=== PATIENT | female | born 1960 | race Caucasian/White ===

== ENCOUNTER 2018-08-31 17:22 | Outpatient (CLI) | payer SELFPAY | END 2018-08-31 17:23 | disposition critical access hospital (66) | LOC: EMS 17:22 | PROVIDERS: ATTEND Surgery | DX: M79.651 Pain in right thigh (principal); R25.2 Cramp and spasm; R20.0 Anesthesia of skin | CPT/HCPCS: A0425; A0429 ==

== ENCOUNTER 2018-08-31 17:45 | Emergency (ER) | payer SELFPAY ==
--- NOTE | 2018-08-31 18:27 | ED Physician Documentation ---
PD HPI ALTERED MENTAL STATUS - Stated complaint Stated Complaint: R LEG PX - Chief complaint Chief Complaint: Neuro - History obtained from History obtained from: Patient, Family, EMS - History of Present Illness Timing - onset: How many days ago (has had some intermittent muscle cramps right leg over past 3 weeks, more often the past 2 days. Had cramping pain right leg today and family noted that she was interacting poorly, sleepy, and did not remember events that had just happened. She denies sedating meds taken for the pain. Brought here for evaluation.) Timing - details: Intermittant (she says her leg feels normal between episodes. Has had some other mild muscle aches in legs and arms the past few weeks as well.) Quality / character: Less responsive, Confused Associated symptoms: Other (mainly the right thigh pain when she was noted to be confused). No: Fever, Headache, Dyspnea, NVD Basline status: Alert and oriented X 3, Ambulatory Similar symptoms before: Has not had sx before (just the past few weeks) Recently seen: Not recently seen Review of Systems Constitutional: denies: Fever, Chills Nose: denies: Rhinorrhea / runny nose, Congestion Throat: denies: Sore throat Cardiac: denies: Chest pain / pressure, Palpitations Respiratory: reports: Cough. denies: Dyspnea, Wheezing GI: denies: Nausea, Vomiting, Diarrhea Neurologic: denies: Focal weakness, Numbness, Headache PD PAST MEDICAL HISTORY - Past Medical History Past Medical History: No Cardiovascular: None Respiratory: None Neuro: None Endocrine/Autoimmune: None GI: None [employer]: None : None HEENT: None Psych: None Musculoskeletal: None Derm: None - Past Surgical History Past Surgical History: Yes Ortho: Knee replacement - Present Medications Home Medications: Ambulatory Orders Medication Instructions Recorded Confirmed Naproxen 375 mg PO BID #20 tablet 08/31/18 Oxycodone HCl/Acetaminophen 1 - 2 each PO Q6H PRN #14 tablet 08/31/18 [Percocet 5-325 mg Tablet] Potassium Chloride 10 meq PO DAILY #15 tablet.er 08/31/18 - Allergies Allergies/Adverse Reactions: Allergies Allergy/AdvReac Type Severity Reaction Status Date / Time No Known Drug Allergies Allergy Verified 08/31/18 17:59 - Living Situation Living Situation: reports: Other ([place] the next 3- 4 months) - Social History Does the pt smoke?: Yes Smoking Status: Current every day smoker Does the pt drink ETOH?: No Does the pt have substance abuse?: No - Immunizations Immunizations are current?: Yes - POLST Patient has POLST: No PD ED PE NORMAL - Vitals Vital signs reviewed: Yes - General General: Alert and oriented X 3, Well developed/nourished, Other (appears in pain and holding right leg up in air, stretching on right back of the leg. No rash nor sores. She is able to answer questions but is focused on the leg pain. Tender posterolateral thigh. ) - Neck Neck: Supple, no meningeal sign, No adenopathy - Cardiac Cardiac: RRR, No murmur - Respiratory Respiratory: Clear bilaterally - Abdomen Abdomen: Normal bowel sounds, Soft, Non tender, Non distended - Back Back: No CVA TTP, No spinal TTP - Derm Derm: Normal color, Warm and dry, No rash - Neuro Neuro: No motor deficit, No sensory deficit, Normal speech. No: Alert and oriented X 3 (somewhat somnolent, focused on leg pain, answers questions simply, but is oriented. ) Results - Vitals Vitals: Oxygen O2 Source Room air - Labs Labs: Microbiology 08/31/18 18:50 Urine Culture - Final Urine,Random NO AEROBIC GROWTH AT 24 HOURS Laboratory Tests 08/31/18 08/31/18 08/31/18 18:50 18:57 18:57 WBC 10.5 RBC 5.11 Hgb 15.4 Hct 45.8 MCV 89.7 MCH 30.2 MCHC 33.6 RDW 13.6 Plt Count 380 MPV 7.8 L Neut # (Auto) 6.2 Lymph # (Auto) 3.4 Tillman # (Auto) 0.7 Eos # (Auto) 0.1 Baso # (Auto) 0.2 H Absolute Nucleated RBC 0.01 Nucleated RBC % 0.1 D-Dimer Sodium 137 Potassium 3.4 L Chloride 107 Carbon Dioxide 19 L Anion Gap 11.0 BUN 9 Creatinine 0.8 Estimated GFR (MDRD) 74 L Glucose 91 Lactic Acid Calcium 9.4 Magnesium 2.1 Total Bilirubin 0.3 AST 26 ALT 20 Alkaline Phosphatase 112 Total Creatine Kinase 98 Total Protein 8.4 H Albumin 4.1 Globulin 4.3 H Albumin/Globulin Ratio 1.0 Lipase 46 TSH Urine Color YELLOW Urine Clarity CLEAR Urine pH 6.5 Ur Specific [place] <=1.005 Urine Protein NEGATIVE Urine Glucose (UA) NEGATIVE Urine Ketones NEGATIVE Urine Occult Blood NEGATIVE Urine Nitrite NEGATIVE Urine Bilirubin NEGATIVE Urine Urobilinogen 0.2 (NORMAL) Ur Leukocyte Esterase TRACE H Urine RBC 0-5 Urine WBC 4-5 Ur Squamous Epith Cells RARE Squamous Urine Bacteria None Seen Ur Microscopic Review INDICATED Urine Culture Comments INDICATED Urine Opiates Screen NEGATIVE Ur Oxycodone Screen NEGATIVE Urine Methadone Screen NEGATIVE Ur Propoxyphene Screen NEGATIVE Ur Barbiturates Screen NEGATIVE Ur Tricyclics Screen NEGATIVE Ur Phencyclidine Scrn NEGATIVE Ur Amphetamine Screen NEGATIVE U Methamphetamines Scrn NEGATIVE U Benzodiazepines Scrn NEGATIVE Urine Cocaine Screen NEGATIVE U Cannabinoids Screen NEGATIVE Ethyl Alcohol < 5.0 08/31/18 08/31/18 08/31/18 18:57 18:57 18:57 WBC RBC Hgb Hct MCV MCH MCHC RDW Plt Count MPV Neut # (Auto) Lymph # (Auto) Tillman # (Auto) Eos # (Auto) Baso # (Auto) Absolute Nucleated RBC Nucleated RBC % D-Dimer < 200.0 L Sodium Potassium Chloride Carbon Dioxide Anion Gap BUN Creatinine Estimated GFR (MDRD) Glucose Lactic Acid 2.3 H Calcium Magnesium Total Bilirubin AST ALT Alkaline Phosphatase Total Creatine Kinase Total Protein Albumin Globulin Albumin/Globulin Ratio Lipase TSH 3.85 Urine Color Urine Clarity Urine pH Ur Specific [place] Urine Protein Urine Glucose (UA) Urine Ketones Urine Occult Blood Urine Nitrite Urine Bilirubin Urine Urobilinogen Ur Leukocyte Esterase Urine RBC Urine WBC Ur Squamous Epith Cells Urine Bacteria Ur Microscopic Review Urine Culture Comments Urine Opiates Screen Ur Oxycodone Screen Urine Methadone Screen Ur Propoxyphene Screen Ur Barbiturates Screen Ur Tricyclics Screen Ur Phencyclidine Scrn Ur Amphetamine Screen U Methamphetamines Scrn U Benzodiazepines Scrn Urine Cocaine Screen U Cannabinoids Screen Ethyl Alcohol - Rads (name of study) chest xray Radiology: Prelim report reviewed, EMP read contemporaneously (normal) PD MEDICAL DECISION MAKING - ED course Complexity details: reviewed results (no lab results to support significant infection, muscle breakdown, DVT. Utox is negative. She denies taking sedating meds for the leg pain. ), considered differential (strangely was having poor interaction and not memory of getting here to ER while having the leg pain. Her numbness of arms/legs/face I think was hyperventilation and would c/w her breathing pattern initially in ER. She is feeling well and normally awake and interactive once had some pain meds for leg. No headache, fever, nor other red flags per se. ), d/w patient Departure - Departure Disposition: 01 Home, Self Care Clinical Impression: Acute pain of right thigh, Hypokalemia Altered mental status Qualifiers: Altered mental status type: delirium Qualified Code(s): R41.0 - Disorientation, unspecified Condition: Stable Record reviewed to determine appropriate education?: Yes Instructions: ED Muscle Pain Leg Cramps Follow-Up: [facility] [Provider Group] Prescriptions: Naproxen 375 mg PO BID #20 tablet Oxycodone HCl/Acetaminophen [Percocet 5-325 mg Tablet] 1 - 2 each PO Q6H PRN #14 tablet PRN Reason: pain Potassium Chloride 10 meq PO DAILY #15 tablet.er Comments: Drink lots of fluids. Potassium supplement as directed. Naproxen twice daily for inflammation and pain. Add Percocet if needed for pain. Follow-up with primary care in the next week. Return if worse symptoms again. Discharge Date/Time: 08/31/18 21:43
[2018-08-31] MEDS ORDERED: SODIUM CHLORIDE 0.9% 1,000 ML IV ONE (18:40)
[2018-08-31] MEDS ORDERED: fentaNYL 100 MCG/2 ML VIAL IVP STA (18:41)
[2018-08-31] MEDS ORDERED: KETOROLAC 15 MG/ML VIAL IVP STA (18:41)
[2018-08-31 18:56] LABS: MUDS CUTOFF CONCENTRATIONS CUTOFF CONC BELOW:
[2018-08-31 19:02] LABS: BASOPHILS # (AUTO) 0.2 10^3/uL (0.0-0.1); BASOPHILS % (AUTO) 1.5 %; EOSINOPHILS # (AUTO) 0.1 10^3/uL (0.0-0.7); HGB - HEMOGLOBIN 15.4 g/dL (12.0-16.0); LYMPHOCYTES # (AUTO) 3.4 10^3/uL (1.5-3.5); LYMPHOCYTES % (AUTO) 32.5 %; MEAN CORPUSCULAR HEMOGLOBIN 30.2 pg (27.0-31.0); MEAN CORPUSCULAR HGB CONC 33.6 g/dL (32.0-36.0); MEAN CORPUSCULAR VOLUME 89.7 fL (81.0-99.0); MEAN PLATELET VOLUME 7.8 fL (7.9-10.8); MONOCYTES # (AUTO) 0.7 10^3/uL (0.0-1.0); MONOCYTES % (AUTO) 6.2 %; NEUTROPHILS # (AUTO) 6.2 10^3/uL (1.5-6.6); NEUTROPHILS % (AUTO) 58.8 %; PLT - PLATELET COUNT 380 10^3/uL (130-450); RED BLOOD COUNT 5.11 10^6/uL (4.20-5.40); RED CELL DISTRIBUTION WIDTH 13.6 % (12.0-15.0); WHITE BLOOD COUNT 10.5 x10^3/uL (4.8-10.8)
[2018-08-31 19:08] LABS: BILIRUBIN,URINE NEGATIVE (NEGATIVE); GLUCOSE, URINE (UA) NEGATIVE (NEGATIVE); KETONES,URINE (UA) NEGATIVE (NEGATIVE); LEUKOCYTE ESTERASE, URINE TRACE (NEGATIVE); NITRITE,URINE NEGATIVE (NEGATIVE); OCCULT BLOOD,URINE NEGATIVE (NEGATIVE); PH,URINE 6.5 PH (5.0-7.5); PROTEIN,URINE NEGATIVE (NEGATIVE); UROBILINOGEN,URINE 0.2 (NORMAL) E.U./dL (NORMAL)
[2018-08-31 19:18] LABS: ALBUMIN 4.1 g/dL (3.2-5.5); ALKALINE PHOSPHATASE 112 IU/L (42-121); ALT ALANINE AMINOTRANSFERASE 20 IU/L (10-60); AST ASPARTATE AMINOTRANSFERASE 26 IU/L (10-42); BILIRUBIN,TOTAL 0.3 mg/dL (0.2-1.0); BUN - BLOOD UREA NITROGEN 9 mg/dL (6-20); CALCIUM 9.4 mg/dL (8.5-10.3); CARBON DIOXIDE - CO2 19 mmol/L (21-32); CHLORIDE 107 mmol/L (101-111); CK- CREATINE KINASE 98 IU/L (22-269); CREATININE 0.8 mg/dL (0.4-1.0); GFR - MDRD 74 (>89); GLUCOSE 91 mg/dL (70-100); LIPASE 46 U/L (22-51); MAGNESIUM 2.1 mg/dL (1.7-2.8); SODIUM 137 mmol/L (135-145); TOTAL PROTEIN 8.4 g/dL (6.7-8.2)
[2018-08-31 19:20] LABS: CLARITY,URINE CLEAR (CLEAR)
[2018-08-31 19:21] LABS: RBC,URINE 0-5 /HPF (0-5)
[2018-08-31 19:22] LABS: AMPHETAMINE SCREEN,URINE NEGATIVE (NEGATIVE); BACTERIA,URINE None Seen /HPF (None Seen); BENZODIAZEPINES SCREEN, URINE NEGATIVE (NEGATIVE); COCAINE SCREEN URINE NEGATIVE (NEGATIVE); METHADONE SCREEN, URINE NEGATIVE (NEGATIVE); METHAMPHETAMINES SCREEN, URINE NEGATIVE (NEGATIVE); OPIATE SCREEN, URINE NEGATIVE (NEGATIVE); OXYCODONE SCREEN, URINE NEGATIVE (NEGATIVE); PROPOXYPHENE SCREEN, URINE NEGATIVE (NEGATIVE); SQUAMOUS EPITHELIAL CELL,UR RARE Squamous (<= Few); TRICYCLIC ANTIDEPRESSANT,URINE NEGATIVE (NEGATIVE)
--- NOTE | 2018-08-31 19:40 | XRAY Report ---
Reason: chest pain Procedure Date: 08/31/2018 Accession Number: [id number] / [id number] Procedure: XR - Chest 1 View X-Ray CPT Code: 91426 FULL RESULT: EXAM: CHEST RADIOGRAPHY EXAM DATE: 08/31/2018 07:14 PM. CLINICAL HISTORY: Chest pain. COMPARISON: None. TECHNIQUE: 1 view. FINDINGS: Lungs/Pleura: No consolidation. Right mid upper lung calcified granuloma. No pneumothorax. Mediastinum: Heart size and mediastinal contour are within normal limits. Aortic atherosclerosis. Other: None. IMPRESSION: 1. No acute disease in the chest. RADIA
[2018-08-31 19:56] VITALS: BP 136/84
[2018-08-31] MEDS ORDERED: POTASSIUM BICARB 25 MEQ TABLET PO STA (20:29)
[2018-08-31] MEDS ORDERED: oxyCODONE 5 MG TABLET PO STA (20:30)
== END 2018-08-31 21:43 | disposition home or self-care (01) ==
LOC: EDBD → ED 17:45
DX: M79.651 Pain in right thigh (principal); E87.6 Hypokalemia; R41.0 Disorientation, unspecified; F17.200 Nicotine dependence, unspecified, uncomplicated
CPT/HCPCS: 36415; 71045; 80053; 80306; 80320; 81001; 82550; 83605; 83690; 83735; 84443; 85025; 85379; 87086; 99283; 99285; A9270; 81003